=== PATIENT | male | born 1965 | race African-American/Black ===

== ENCOUNTER 2024-05-06 10:07 | Emergency (ER) | payer SELFPAY ==
[~2024-05-06] VITALS: Ht 165.1 cm; Wt 70.0 kg
[2024-05-06 10:14] VITALS: BP 146/91; PULSE 88; RESP 16; TEMP 98.2; O2SAT 99
== END 2024-05-06 19:00 | disposition left against medical advice (07) ==
LOC: ER 10:07
DX: R68.89 Other general symptoms and signs (principal); Z53.21 Procedure and treatment not carried out due to patient leaving prior to being seen by health care provider

== ENCOUNTER 2024-06-01 06:00 | Emergency (ER) | payer MEDICAID ==
[~2024-06-01] VITALS: Ht 172.7 cm; Wt 68.0 kg
[2024-06-01 06:25] VITALS: O2SAT 97
[2024-06-01 06:26] VITALS: BP 128/71; PULSE 95; RESP 18; TEMP 98.7; O2SAT 97
== END 2024-06-01 06:46 | disposition left against medical advice (07) ==
LOC: ER 06:18
DX: S01.312A Laceration without foreign body of left ear, initial encounter (principal); W45.8XXA Other foreign body or object entering through skin, initial encounter; Y93.89 Activity, other specified; Y92.89 Other specified places as the place of occurrence of the external cause; Y99.8 Other external cause status
CPT/HCPCS: 99281